=== PATIENT | female | born 1995 | race Caucasian/White ===

== ENCOUNTER 2021-11-15 20:03 | Emergency (ER) | payer OTHER, MEDICAID, SELFPAY ==
[2021-11-15] VITALS (34 sets, daily range): BP systolic 84–124; BP diastolic 49–64; PULSE 74–141; RESP 15–36; TEMP 37.2; O2SAT 90–97; BMI 34.9
[2021-11-15] MEDS: LORazepam 2 MG/ML INJ ×3 (20:11→21:25)
--- NOTE | 2021-11-15 20:23 | DI.CT.S_ITS ---
PROCEDURE: CT HEAD/BRAIN WO CON INDICATIONS: seizure TECHNIQUE: Noncontrast 4.5 mm thick angled axial sections acquired from the foramen magnum to the vertex, with coronal and sagittal reformats. For radiation dose reduction, the following was used: automated exposure control, adjustment of mA and/or kV according to patient size. COMPARISON: [facility], CT, CT HEAD WITHOUT CONTRAST, 10/27/2018, 19:33. FINDINGS: Image quality: Excellent. CSF spaces: Basal cisterns are patent. No extra-axial fluid collections. Ventricles are normal in size and shape. Brain: No midline shift. No intracranial masses or hemorrhage. Stuart-white matter interface is normal. Skull and face: Calvarium and visualized facial bones are intact, without suspicious lesions. Sinuses: Visualized sinuses and mastoids are clear. IMPRESSION: 1. No acute intracranial abnormalities. If clinically indicated, follow-up MRI may be helpful. Dictated by: Tahira Cruz M.D. on 11/15/2021 at 21:38 Approved by: Tahira Cruz M.D. on 11/15/2021 at 21:39
--- NOTE | 2021-11-15 20:25 | ED.SEIZURE ---
HPI - Seizure <Ella Rao DO - Last Filed: 11/16/21 23:24> General Chief Complaint: Seizure Stated Complaint: Siezure Time Seen by Provider: 11/15/21 20:22 Source: patient and EMS Mode of arrival: EMS Limitations: no limitations History of Present Illness HPI Narrative: Patient is a 26-year-old female with history of epilepsy taking Lamictal and Keppra presenting today with seizure. According to EMS she had been seizing for 30 minutes prior to their arrival. She immediately received 5 mg of Versed IM she continued to see his for approximately 20 minutes for them she got 3 mg of Versed IV once IV was established. She did not have a postictal per EMS. She upon arrival was awake alert oriented but immediately started seizing again a seizure lasting for approximately 5 minutes. She received 2 doses of IV Ativan and is now being loaded with Keppra 1g. She has not bitten her tongue no incontinence of urine. She did have rolling of the eyes in the back of the head. Her neurologist is Dr. Jacobs at [facility]. Patient's mother is at bedside she recently flew in because of her recent hospitalization at [facility]. Patient apparently has appointment with her primary neurologist in 2 days. Records from [facility] have been received and reviewed. EEG from November 06 to November 07 shows that there is 1 prolonged event lasting upwards of possibly 15 minutes described with varying degrees of a rhythmic jerking pelvic thrusting abdominal flexions epi and flowing its characteristics without clear-cut electro cerebral correlate. Given the clinical appearance of this particular event strong suspicion would be for this being a psychogenic nonepileptic seizure. Related Data Allergies Allergy/AdvReac Type Severity Reaction Status Date / Time INGREDIENT: NO KNOWN - NO Allergy Unknown Uncoded 01/06/18 13:09 KNOWN DRUG ALLERGY Review of Systems <Ella Rao DO - Last Filed: 11/16/21 23:24> Review of Systems Narrative: GENERAL: Denies chills, fatigue, malaise, fever, sweats, travel HEENT: Denies sinus pain, ear pain, sore throat, difficulty swallowing, neck pain RESPIRATORY: Denies dyspnea, cough, wheezing, hemoptysis, sputum. CARDIOVASCULAR: Denies chest pain, palpitations, orthopnea, edema GASTROINTESTINAL: Denies nausea, vomiting, abdominal pain, diarrhea, constipation, melena. : Denies dysuria, frequency, incontinence, hematuria, urinary retention, flank pain. MUSCULOSKELETAL: Denies weakness, joint pain, or bony pain SKIN: No rash, no erythema, no pruritus NEUROLOGIC: Denies weakness, dizziness, headache, numbness, change in speech, confusion PSYCHIATRIC: No concerning psychosocial issues. 12 point review of systems is negative except for those stated above and HPI Patient History <Ella Rao DO - Last Filed: 11/16/21 23:24> alcohol intake frequency: 0-2 drinks per day Exam <Ella Rao DO - Last Filed: 11/16/21 23:24> Initial Vital Signs Initial Vital Signs: Vital Signs Temperature 99.0 F 11/15/21 20:07 Pulse Rate 130 H 11/15/21 20:07 Respiratory Rate 23 11/15/21 20:07 Blood Pressure 103/58 L 11/15/21 20:07 Pulse Oximetry 93 11/15/21 20:07 GENERAL: Alert diaphoretic 26-year-old female HEENT: Head atraumatic,EOMI, pupils reactive, face symmetric, [moist] mucous membranes CARDIOVASCULAR: Tachycardic regular RESPIRATORY: Breath sounds equal bilaterally, no wheezes rales or rhonchi. ABDOMEN: Soft, nontender. Normoactive bowel sounds all 4 quadrants. No guarding or rebound. EXTREMITIES: Normal range of motion, no clubbing or edema. Neurovascularly intact NEUROLOGICAL: A&O x4 no cranial nerve deficits SKIN: Warm, dry, no laceration, no petechiae, no rashes or lesions. <Amanda Bartholomew, DO - Last Filed: 11/16/21 18:47> Initial Vital Signs Initial Vital Signs: Vital Signs Temperature 99.0 F 11/15/21 20:07 Pulse Rate 130 H 11/15/21 20:07 Respiratory Rate 23 11/15/21 20:07 Blood Pressure 103/58 L 11/15/21 20:07 Pulse Oximetry 93 11/15/21 20:07 Course <Ella Rao DO - Last Filed: 11/16/21 23:24> Orders Ordered: Discontinued Medications Diazepam (Diazepam 10 Mg/2 Ml Syringe) 5 mg IV NOW ONE Stop: 11/15/21 20:19 Last Admin: 11/15/21 23:40 Dose: Not Given Documented by: BENNETT Levetiracetam 1,000 mg/ Sodium (Chloride) 110 mls @ 440 mls/hr IV NOW ONE Stop: 11/15/21 20:13 Last Infusion: 11/15/21 20:45 Dose: 0 mls/hr Documented by: Admin: 11/15/21 20:26 Dose: 440 mls/hr Documented by: BENNETT Sodium Chloride (Normal Saline 0.9%) 1,000 mls @ 1,000 mls/hr IV BOLUS ONE Stop: 11/15/21 21:21 Last Infusion: 11/15/21 21:53 Dose: 0 mls/hr Documented by: Admin: 11/15/21 20:31 Dose: 1,000 mls/hr Documented by: BENNETT Sodium Chloride (Normal Saline 0.9%) 1,000 mls @ 1,000 mls/hr IV BOLUS ONE Stop: 11/15/21 22:42 Last Infusion: 11/15/21 23:29 Dose: 0 mls/hr Documented by: Admin: 11/15/21 21:55 Dose: 1,000 mls/hr Documented by: MANUEL Vital Signs Vital signs: Vital Signs - 8 hr 11/15/21 23:50 11/16/21 00:00 11/16/21 00:10 Pulse Rate 75 73 74 Respiratory Rate 24 23 17 Blood Pressure 107/61 Pulse Oximetry 96 94 11/16/21 00:15 11/16/21 00:20 11/16/21 00:30 Pulse Rate 73 77 78 Respiratory Rate 17 18 19 Blood Pressure 111/67 Pulse Oximetry 94 93 93 11/16/21 00:40 11/16/21 00:50 11/16/21 01:00 Pulse Rate 81 79 79 Respiratory Rate 18 19 18 Blood Pressure 104/62 Pulse Oximetry 93 93 93 11/16/21 01:10 11/16/21 01:20 11/16/21 01:30 Pulse Rate 81 81 77 Respiratory Rate 17 18 17 Blood Pressure Pulse Oximetry 93 93 94 11/16/21 01:40 11/16/21 01:50 11/16/21 02:00 Pulse Rate 77 76 71 Respiratory Rate 17 18 17 Blood Pressure 111/63 Pulse Oximetry 94 94 94 11/16/21 02:10 11/16/21 02:20 11/16/21 02:30 Pulse Rate 71 71 69 Respiratory Rate 16 17 17 Blood Pressure Pulse Oximetry 95 95 95 11/16/21 02:40 11/16/21 02:50 11/16/21 03:00 Pulse Rate 75 72 69 Respiratory Rate 16 15 0 L Blood Pressure 108/64 Pulse Oximetry 95 95 95 11/16/21 03:10 11/16/21 03:20 11/16/21 03:30 Pulse Rate 68 70 69 Respiratory Rate 17 16 16 Blood Pressure Pulse Oximetry 95 95 95 11/16/21 03:40 11/16/21 03:50 11/16/21 04:00 Pulse Rate 68 69 78 Respiratory Rate 17 16 32 H Blood Pressure 112/76 Pulse Oximetry 94 94 94 11/16/21 04:10 11/16/21 04:20 11/16/21 04:30 Pulse Rate 66 61 60 Respiratory Rate 16 16 17 Blood Pressure Pulse Oximetry 94 94 94 11/16/21 05:00 11/16/21 05:30 11/16/21 06:00 Pulse Rate 64 61 61 Respiratory Rate 16 15 16 Blood Pressure 104/61 100/57 L Pulse Oximetry 93 99 94 11/16/21 06:30 Pulse Rate 59 L Respiratory Rate 17 Blood Pressure Pulse Oximetry 96 <Amanda Bartholomew, - Last Filed: 11/16/21 18:47> Orders Ordered: Discontinued Medications Diazepam (Diazepam 10 Mg/2 Ml Syringe) 5 mg IV NOW ONE Stop: 11/15/21 20:19 Last Admin: 11/15/21 23:40 Dose: Not Given Documented by: BENNETT Levetiracetam 1,000 mg/ Sodium (Chloride) 110 mls @ 440 mls/hr IV NOW ONE Stop: 11/15/21 20:13 Last Infusion: 11/15/21 20:45 Dose: 0 mls/hr Documented by: Admin: 11/15/21 20:26 Dose: 440 mls/hr Documented by: BENNETT Sodium Chloride (Normal Saline 0.9%) 1,000 mls @ 1,000 mls/hr IV BOLUS ONE Stop: 11/15/21 21:21 Last Infusion: 11/15/21 21:53 Dose: 0 mls/hr Documented by: Admin: 11/15/21 20:31 Dose: 1,000 mls/hr Documented by: BENNETT Sodium Chloride (Normal Saline 0.9%) 1,000 mls @ 1,000 mls/hr IV BOLUS ONE Stop: 11/15/21 22:42 Last Infusion: 11/15/21 23:29 Dose: 0 mls/hr Documented by: Admin: 11/15/21 21:55 Dose: 1,000 mls/hr Documented by: MANUEL Reevaluation(s) Reevaluation #1: Patient signed out to myself. Seen and independently evaluated by myself. Patient is alert. Appropriate. We reviewed her findings from the end and recommendation from the neuro hospitalist there. Patient states she has been told she has focal seizures and sees Dr. Jacobs. Unclear if she had prior EEGs that showed this. At this time recommended to have continue her medications as prescribed. We will wait for her mother to come to pick her up continue to monitor she had quite a bit of benzos but is alert at this time and not particularly sleepy on my examination. Time: 07:47 Reevaluation #2: Patient seen just before discharge. Her mother is at bedside we reviewed findings overnight that her head CT was negative. She had reviewed with Dr. Rao the findings and recommendations from neuro hospitalist and that these are believed to be psychogenic nonepileptic seizures. They do have follow-up this coming Thursday with her regular neurologist Dr. Jacobs recommended to give these findings and her discharge paperwork to him for further evaluation as he has her past medical history available to him and we do not. Vital Signs Vital signs: Vital Signs - 8 hr 11/15/21 23:50 11/16/21 00:00 11/16/21 00:10 Pulse Rate 75 73 74 Respiratory Rate 24 23 17 Blood Pressure 107/61 Pulse Oximetry 96 94 11/16/21 00:15 11/16/21 00:20 11/16/21 00:30 Pulse Rate 73 77 78 Respiratory Rate 17 18 19 Blood Pressure 111/67 Pulse Oximetry 94 93 93 11/16/21 00:40 11/16/21 00:50 11/16/21 01:00 Pulse Rate 81 79 79 Respiratory Rate 18 19 18 Blood Pressure 104/62 Pulse Oximetry 93 93 93 11/16/21 01:10 11/16/21 01:20 11/16/21 01:30 Pulse Rate 81 81 77 Respiratory Rate 17 18 17 Blood Pressure Pulse Oximetry 93 93 94 11/16/21 01:40 11/16/21 01:50 11/16/21 02:00 Pulse Rate 77 76 71 Respiratory Rate 17 18 17 Blood Pressure 111/63 Pulse Oximetry 94 94 94 11/16/21 02:10 11/16/21 02:20 11/16/21 02:30 Pulse Rate 71 71 69 Respiratory Rate 16 17 17 Blood Pressure Pulse Oximetry 95 95 95 11/16/21 02:40 11/16/21 02:50 11/16/21 03:00 Pulse Rate 75 72 69 Respiratory Rate 16 15 0 L Blood Pressure 108/64 Pulse Oximetry 95 95 95 11/16/21 03:10 11/16/21 03:20 11/16/21 03:30 Pulse Rate 68 70 69 Respiratory Rate 17 16 16 Blood Pressure Pulse Oximetry 95 95 95 11/16/21 03:40 11/16/21 03:50 11/16/21 04:00 Pulse Rate 68 69 78 Respiratory Rate 17 16 32 H Blood Pressure 112/76 Pulse Oximetry 94 94 94 11/16/21 04:10 11/16/21 04:20 11/16/21 04:30 Pulse Rate 66 61 60 Respiratory Rate 16 16 17 Blood Pressure Pulse Oximetry 94 94 94 11/16/21 05:00 11/16/21 05:30 11/16/21 06:00 Pulse Rate 64 61 61 Respiratory Rate 16 15 16 Blood Pressure 104/61 100/57 L Pulse Oximetry 93 99 94 11/16/21 06:30 Pulse Rate 59 L Respiratory Rate 17 Blood Pressure Pulse Oximetry 96 MDM - Seizure <Ella Rao, DO - Last Filed: 11/16/21 23:24> Lab Data Result diagrams: 11/15/21 20:18 11/15/21 20:18 Labs: Lab Results 11/15/21 11/15/21 11/15/21 Range/Units 20:18 20:18 20:18 WBC (4.5-11.0) X10^3/uL RBC (4.0-5.2) X10^6/uL Hgb (12.0-16.0) g/dL Hct (36-46) % MCV (80-100) fL MCH (26-34) PG MCHC (30-36) % RDW (11.6-14.8) % Plt Count (150-400) X10^3/uL Neut % (Auto) (50-75) % Lymph % (Auto) (25-40) % [place] % (Auto) (3-14) % Eos % (Auto) (2-4) % Baso % (Auto) (0-2) % Neut # (Auto) (8218-7826) /uL Lymph # (Auto) (2284-0150) /uL [place] # (Auto) (0-900) /uL Eos # (Auto) (0-450) /uL Baso # (Auto) (0-100) /uL Sodium 140 (137-145) mmol/L Potassium 3.5 (3.4-5.1) mmol/L Chloride 106 (98-107) mmol/L Carbon Dioxide 21 L (22-32) mmol/L BUN 10 (7-17) mg/dL Creatinine 0.89 (0.52-1.04) mg/dL Estimated GFR > 60.0 (>60) mL/min BUN/Creatinine Ratio 11.2 (6-22) Glucose 118 H (70-100) mg/dL Lactate 5.4 H* (0.7-2.1) mmol/L Calcium 9.5 (8.4-10.2) mg/dL Magnesium (1.6-2.3) mg/dL Total Bilirubin 0.3 (0.2-1.3) mg/dL AST 31 (14-36) IU/L ALT 20 (<35) IU/L Alkaline Phosphatase 77 (38-126) U/L Total Protein 8.0 (6.3-8.2) g/dL Albumin 4.8 (3.5-5.0) g/dL Globulin 3.2 (1.7-4.1) g/dL Albumin/Globulin Ratio 1.5 (1.0-2.8) Prolactin (3.0-18.6) ng/mL Serum , Qual Negative (Negative) Urine Color Urine Appearance Urine pH (4.5-8.0) Ur Specific [place] (1.000-1.035) Urine Protein (Negative) Urine Glucose (UA) (Negative) g/dL Urine Ketones (NEGATIVE) Urine Occult Blood (Negative) Urine Nitrate (Negative) Urine Bilirubin (NEGATIVE) Urine Urobilinogen (0.2) E.U./dL Ur Leukocyte Esterase (NEGATIVE) U Opiates 300ng/mL cut (Negative) Ur Oxycodone Screen (Negative) Urine Methadone Screen (Negative) Ur Barbiturates Screen (Negative) U Tricyclic Antidepress (Negative) Ur Phencyclidine Scrn (Negative) Ur Amphetamines Screen (Negative) U Methamphetamines Scrn (Negative) Ur MDMA Scrn (Ecstasy) (Negative) U Benzodiazepines Scrn (Negative) Urine Cocaine Screen (Negative) U Marijuana (THC) Screen (Negative) SARS-CoV-2 (PCR) (Negative) 11/15/21 11/15/21 11/15/21 Range/Units 20:18 20:18 20:25 WBC 6.9 (4.5-11.0) X10^3/uL RBC 5.17 (4.0-5.2) X10^6/uL Hgb 14.2 (12.0-16.0) g/dL Hct 41.4 (36-46) % MCV 80.1 (80-100) fL MCH 27.4 (26-34) PG MCHC 34.2 (30-36) % RDW 14.1 (11.6-14.8) % Plt Count 345 (150-400) X10^3/uL Neut % (Auto) 63.1 (50-75) % Lymph % (Auto) 27.4 (25-40) % [place] % (Auto) 7.3 (3-14) % Eos % (Auto) 1.5 L (2-4) % Baso % (Auto) 0.7 (0-2) % Neut # (Auto) 4400 (7323-8855) /uL Lymph # (Auto) 1900 (0527-4664) /uL [place] # (Auto) 500 (0-900) /uL Eos # (Auto) 100 (0-450) /uL Baso # (Auto) 0 (0-100) /uL Sodium (137-145) mmol/L Potassium (3.4-5.1) mmol/L Chloride (98-107) mmol/L Carbon Dioxide (22-32) mmol/L BUN (7-17) mg/dL Creatinine (0.52-1.04) mg/dL Estimated GFR (>60) mL/min BUN/Creatinine Ratio (6-22) Glucose (70-100) mg/dL Lactate (0.7-2.1) mmol/L Calcium (8.4-10.2) mg/dL Magnesium 1.6 (1.6-2.3) mg/dL Total Bilirubin (0.2-1.3) mg/dL AST (14-36) IU/L ALT (<35) IU/L Alkaline Phosphatase (38-126) U/L Total Protein (6.3-8.2) g/dL Albumin (3.5-5.0) g/dL Globulin (1.7-4.1) g/dL Albumin/Globulin Ratio (1.0-2.8) Prolactin 36.8 H (3.0-18.6) ng/mL Serum , Qual (Negative) Urine Color Urine Appearance Urine pH (4.5-8.0) Ur Specific [place] (1.000-1.035) Urine Protein (Negative) Urine Glucose (UA) (Negative) g/dL Urine Ketones (NEGATIVE) Urine Occult Blood (Negative) Urine Nitrate (Negative) Urine Bilirubin (NEGATIVE) Urine Urobilinogen (0.2) E.U./dL Ur Leukocyte Esterase (NEGATIVE) U Opiates 300ng/mL cut (Negative) Ur Oxycodone Screen (Negative) Urine Methadone Screen (Negative) Ur Barbiturates Screen (Negative) U Tricyclic Antidepress (Negative) Ur Phencyclidine Scrn (Negative) Ur Amphetamines Screen (Negative) U Methamphetamines Scrn (Negative) Ur MDMA Scrn (Ecstasy) (Negative) U Benzodiazepines Scrn (Negative) Urine Cocaine Screen (Negative) U Marijuana (THC) Screen (Negative) SARS-CoV-2 (PCR) Negative (Negative) 11/15/21 11/15/21 11/15/21 Range/Units 20:53 20:53 22:37 WBC (4.5-11.0) X10^3/uL RBC (4.0-5.2) X10^6/uL Hgb (12.0-16.0) g/dL Hct (36-46) % MCV (80-100) fL MCH (26-34) PG MCHC (30-36) % RDW (11.6-14.8) % Plt Count (150-400) X10^3/uL Neut % (Auto) (50-75) % Lymph % (Auto) (25-40) % [place] % (Auto) (3-14) % Eos % (Auto) (2-4) % Baso % (Auto) (0-2) % Neut # (Auto) (8074-5269) /uL Lymph # (Auto) (5511-5344) /uL [place] # (Auto) (0-900) /uL Eos # (Auto) (0-450) /uL Baso # (Auto) (0-100) /uL Sodium (137-145) mmol/L Potassium (3.4-5.1) mmol/L Chloride (98-107) mmol/L Carbon Dioxide (22-32) mmol/L BUN (7-17) mg/dL Creatinine (0.52-1.04) mg/dL Estimated GFR (>60) mL/min BUN/Creatinine Ratio (6-22) Glucose (70-100) mg/dL Lactate 0.8 (0.7-2.1) mmol/L Calcium (8.4-10.2) mg/dL Magnesium (1.6-2.3) mg/dL Total Bilirubin (0.2-1.3) mg/dL AST (14-36) IU/L ALT (<35) IU/L Alkaline Phosphatase (38-126) U/L Total Protein (6.3-8.2) g/dL Albumin (3.5-5.0) g/dL Globulin (1.7-4.1) g/dL Albumin/Globulin Ratio (1.0-2.8) Prolactin (3.0-18.6) ng/mL Serum , Qual (Negative) Urine Color Yellow Urine Appearance Cloudy Urine pH 7.0 (4.5-8.0) Ur Specific [place] 1.020 (1.000-1.035) Urine Protein Trace H (Negative) Urine Glucose (UA) Negative (Negative) g/dL Urine Ketones Negative (NEGATIVE) Urine Occult Blood Negative (Negative) Urine Nitrate Negative (Negative) Urine Bilirubin Negative (NEGATIVE) Urine Urobilinogen 0.2 (0.2) E.U./dL Ur Leukocyte Esterase Negative (NEGATIVE) U Opiates 300ng/mL cut Negative (Negative) Ur Oxycodone Screen Negative (Negative) Urine Methadone Screen Negative (Negative) Ur Barbiturates Screen Negative (Negative) U Tricyclic Antidepress Negative (Negative) Ur Phencyclidine Scrn Negative (Negative) Ur Amphetamines Screen Negative (Negative) U Methamphetamines Scrn Negative (Negative) Ur MDMA Scrn (Ecstasy) Negative (Negative) U Benzodiazepines Scrn Negative (Negative) Urine Cocaine Screen Negative (Negative) U Marijuana (THC) Screen Positive H (Negative) SARS-CoV-2 (PCR) (Negative) Point of Care Testing Glucose POC [address] scan - head: Radiologist's Impression: PROCEDURE:? CT HEAD/BRAIN WO CON ? INDICATIONS:? seizure ? TECHNIQUE:? Noncontrast 4.5 mm thick angled axial sections acquired from the foramen magnum to the vertex, with coronal and sagittal reformats.? For radiation dose reduction, the following was used:? automated exposure control, adjustment of mA and/or kV according to patient size.? ? COMPARISON:? [facility], CT, CT HEAD WITHOUT CONTRAST, 10/27/2018, 19:33. ? FINDINGS:? Image quality:? Excellent.? ? CSF spaces:? Basal cisterns are patent.? No extra-axial fluid collections.? Ventricles are normal in size and shape.? ? Brain:? No midline shift.? No intracranial masses or hemorrhage.? [place]-white matter interface is normal.? ? Skull and face:? Calvarium and visualized facial bones are intact, without suspicious lesions.? ? Sinuses:? Visualized sinuses and mastoids are clear.? ? IMPRESSION:? ? 1. No acute intracranial abnormalities. If clinically indicated, follow-up MRI may be helpful.? ? Dictated by: Tahira Cruz M.D. on 11/15/2021 at 21:38 ? ? MDM Narrative Medical decision making narrative: The patient immediately had seizure upon arrival in the emergency department requiring a total 4 mg of Ativan. Seizure lasting anywhere from 5-10 minutes. She then came out of it without being postictal awake and alert requesting to see this CT images of her head once it is done. Once in the CT scanner she again had another seizure for which she was again given [address] 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 He states that there is no medication for this to stop. He agrees with the Ativan and Keppra however previously she received some any benzodiazepines that she remains sleeping for 16 hours, she was not intubated. At this time he states the patient does not need to be transferred and unlikely need any admission but does need follow-up with her own neurologist. Attempted to call is age the neurologist on-call for her his but the voicemail was full The patient was trying to record any but I did not give my permission for her to record then she wanted to leave. Mom states that she has had difficulty ambulating actually walk a walker since her discharge. Patient actually fell asleep. She is being monitored for all the benzodiazepines that she was given. Patient is signed out too Dr. Bartholomew <Amanda Bartholomew, DO - Last Filed: 11/16/21 18:47> Lab Data Labs: Lab Results 11/15/21 11/15/21 11/15/21 Range/Units 20:18 20:18 20:18 WBC (4.5-11.0) X10^3/uL RBC (4.0-5.2) X10^6/uL Hgb (12.0-16.0) g/dL Hct (36-46) % MCV (80-100) fL MCH (26-34) PG MCHC (30-36) % RDW (11.6-14.8) % Plt Count (150-400) X10^3/uL Neut % (Auto) (50-75) % Lymph % (Auto) (25-40) % [place] % (Auto) (3-14) % Eos % (Auto) (2-4) % Baso % (Auto) (0-2) % Neut # (Auto) (7258-9671) /uL Lymph # (Auto) (1199-8379) /uL [place] # (Auto) (0-900) /uL Eos # (Auto) (0-450) /uL Baso # (Auto) (0-100) /uL Sodium 140 (137-145) mmol/L Potassium 3.5 (3.4-5.1) mmol/L Chloride 106 (98-107) mmol/L Carbon Dioxide 21 L (22-32) mmol/L BUN 10 (7-17) mg/dL Creatinine 0.89 (0.52-1.04) mg/dL Estimated GFR > 60.0 (>60) mL/min BUN/Creatinine Ratio 11.2 (6-22) Glucose 118 H (70-100) mg/dL Lactate 5.4 H* (0.7-2.1) mmol/L Calcium 9.5 (8.4-10.2) mg/dL Magnesium (1.6-2.3) mg/dL Total Bilirubin 0.3 (0.2-1.3) mg/dL AST 31 (14-36) IU/L ALT 20 (<35) IU/L Alkaline Phosphatase 77 (38-126) U/L Total Protein 8.0 (6.3-8.2) g/dL Albumin 4.8 (3.5-5.0) g/dL Globulin 3.2 (1.7-4.1) g/dL Albumin/Globulin Ratio 1.5 (1.0-2.8) Prolactin (3.0-18.6) ng/mL Serum , Qual Negative (Negative) Urine Color Urine Appearance Urine pH (4.5-8.0) Ur Specific [place] (1.000-1.035) Urine Protein (Negative) Urine Glucose (UA) (Negative) g/dL Urine Ketones (NEGATIVE) Urine Occult Blood (Negative) Urine Nitrate (Negative) Urine Bilirubin (NEGATIVE) Urine Urobilinogen (0.2) E.U./dL Ur Leukocyte Esterase (NEGATIVE) U Opiates 300ng/mL cut (Negative) Ur Oxycodone Screen (Negative) Urine Methadone Screen (Negative) Ur Barbiturates Screen (Negative) U Tricyclic Antidepress (Negative) Ur Phencyclidine Scrn (Negative) Ur Amphetamines Screen (Negative) U Methamphetamines Scrn (Negative) Ur MDMA Scrn (Ecstasy) (Negative) U Benzodiazepines Scrn (Negative) Urine Cocaine Screen (Negative) U Marijuana (THC) Screen (Negative) SARS-CoV-2 (PCR) (Negative) 11/15/21 11/15/21 11/15/21 Range/Units 20:18 20:18 20:25 WBC 6.9 (4.5-11.0) X10^3/uL RBC 5.17 (4.0-5.2) X10^6/uL Hgb 14.2 (12.0-16.0) g/dL Hct 41.4 (36-46) % MCV 80.1 (80-100) fL MCH 27.4 (26-34) PG MCHC 34.2 (30-36) % RDW 14.1 (11.6-14.8) % Plt Count 345 (150-400) X10^3/uL Neut % (Auto) 63.1 (50-75) % Lymph % (Auto) 27.4 (25-40) % [place] % (Auto) 7.3 (3-14) % Eos % (Auto) 1.5 L (2-4) % Baso % (Auto) 0.7 (0-2) % Neut # (Auto) 4400 (4041-4176) /uL Lymph # (Auto) 1900 (9586-4782) /uL [place] # (Auto) 500 (0-900) /uL Eos # (Auto) 100 (0-450) /uL Baso # (Auto) 0 (0-100) /uL Sodium (137-145) mmol/L Potassium (3.4-5.1) mmol/L Chloride (98-107) mmol/L Carbon Dioxide (22-32) mmol/L BUN (7-17) mg/dL Creatinine (0.52-1.04) mg/dL Estimated GFR (>60) mL/min BUN/Creatinine Ratio (6-22) Glucose (70-100) mg/dL Lactate (0.7-2.1) mmol/L Calcium (8.4-10.2) mg/dL Magnesium 1.6 (1.6-2.3) mg/dL Total Bilirubin (0.2-1.3) mg/dL AST (14-36) IU/L ALT (<35) IU/L Alkaline Phosphatase (38-126) U/L Total Protein (6.3-8.2) g/dL Albumin (3.5-5.0) g/dL Globulin (1.7-4.1) g/dL Albumin/Globulin Ratio (1.0-2.8) Prolactin 36.8 H (3.0-18.6) ng/mL Serum , Qual (Negative) Urine Color Urine Appearance Urine pH (4.5-8.0) Ur Specific [place] (1.000-1.035) Urine Protein (Negative) Urine Glucose (UA) (Negative) g/dL Urine Ketones (NEGATIVE) Urine Occult Blood (Negative) Urine Nitrate (Negative) Urine Bilirubin (NEGATIVE) Urine Urobilinogen (0.2) E.U./dL Ur Leukocyte Esterase (NEGATIVE) U Opiates 300ng/mL cut (Negative) Ur Oxycodone Screen (Negative) Urine Methadone Screen (Negative) Ur Barbiturates Screen (Negative) U Tricyclic Antidepress (Negative) Ur Phencyclidine Scrn (Negative) Ur Amphetamines Screen (Negative) U Methamphetamines Scrn (Negative) Ur MDMA Scrn (Ecstasy) (Negative) U Benzodiazepines Scrn (Negative) Urine Cocaine Screen (Negative) U Marijuana (THC) Screen (Negative) SARS-CoV-2 (PCR) Negative (Negative) 11/15/21 11/15/21 11/15/21 Range/Units 20:53 20:53 22:37 WBC (4.5-11.0) X10^3/uL RBC (4.0-5.2) X10^6/uL Hgb (12.0-16.0) g/dL Hct (36-46) % MCV (80-100) fL MCH (26-34) PG MCHC (30-36) % RDW (11.6-14.8) % Plt Count (150-400) X10^3/uL Neut % (Auto) (50-75) % Lymph % (Auto) (25-40) % [place] % (Auto) (3-14) % Eos % (Auto) (2-4) % Baso % (Auto) (0-2) % Neut # (Auto) (0826-4419) /uL Lymph # (Auto) (8700-9232) /uL [place] # (Auto) (0-900) /uL Eos # (Auto) (0-450) /uL Baso # (Auto) (0-100) /uL Sodium (137-145) mmol/L Potassium (3.4-5.1) mmol/L Chloride (98-107) mmol/L Carbon Dioxide (22-32) mmol/L BUN (7-17) mg/dL Creatinine (0.52-1.04) mg/dL Estimated GFR (>60) mL/min BUN/Creatinine Ratio (6-22) Glucose (70-100) mg/dL Lactate 0.8 (0.7-2.1) mmol/L Calcium (8.4-10.2) mg/dL Magnesium (1.6-2.3) mg/dL Total Bilirubin (0.2-1.3) mg/dL AST (14-36) IU/L ALT (<35) IU/L Alkaline Phosphatase (38-126) U/L Total Protein (6.3-8.2) g/dL Albumin (3.5-5.0) g/dL Globulin (1.7-4.1) g/dL Albumin/Globulin Ratio (1.0-2.8) Prolactin (3.0-18.6) ng/mL Serum , Qual (Negative) Urine Color Yellow Urine Appearance Cloudy Urine pH 7.0 (4.5-8.0) Ur Specific [place] 1.020 (1.000-1.035) Urine Protein Trace H (Negative) Urine Glucose (UA) Negative (Negative) g/dL Urine Ketones Negative (NEGATIVE) Urine Occult Blood Negative (Negative) Urine Nitrate Negative (Negative) Urine Bilirubin Negative (NEGATIVE) Urine Urobilinogen 0.2 (0.2) E.U./dL Ur Leukocyte Esterase Negative (NEGATIVE) U Opiates 300ng/mL cut Negative (Negative) Ur Oxycodone Screen Negative (Negative) Urine Methadone Screen Negative (Negative) Ur Barbiturates Screen Negative (Negative) U Tricyclic Antidepress Negative (Negative) Ur Phencyclidine Scrn Negative (Negative) Ur Amphetamines Screen Negative (Negative) U Methamphetamines Scrn Negative (Negative) Ur MDMA Scrn (Ecstasy) Negative (Negative) U Benzodiazepines Scrn Negative (Negative) Urine Cocaine Screen Negative (Negative) U Marijuana (THC) Screen Positive H (Negative) SARS-CoV-2 (PCR) (Negative) Point of Care Testing Glucose POC 101 MDM Narrative Medical decision making narrative: The patient immediately had seizure upon arrival in the emergency department requiring a total 4 mg of Ativan. Seizure lasting anywhere from 5-10 minutes. She then came out of it without being postictal awake and alert requesting to see this CT images of her head once it is done. Once in the CT scanner she again had another seizure for which she was again given [address] 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 He states that there is no medication for this to stop. He agrees with the Ativan and Keppra however previously she received some any benzodiazepines that she remains sleeping for 16 hours, she was not intubated. At this time he states the patient does not need to be transferred and unlikely need any admission but does need follow-up with her own neurologist. Attempted to call is age the neurologist on-call for her his but the voicemail was full The patient was trying to record any but I did not give my permission for her to record then she wanted to leave. Mom states that she has had difficulty ambulating actually walk a walker since her discharge. Patient actually fell asleep. She is being monitored for all the benzodiazepines that she was given. Patient is signed out too Dr. Bartholomew. Patient signed out to myself by Dr. Rao. Patient seen independently evaluated by myself patient has of history of psychogenic seizures and was seen at [facility] November 06, had an EEG which did not show seizure activity and Dr. Rao spoke with her hospitalist who states patient does have pseudoseizures or nonepileptic seizures. They reviewed that there is no medications for this to stop. Patient did have an elevated lactate which is improved here in the department with otherwise reassuring labs, negative head CT and had improvement but has been sleeping for quite signed time likely to the multiple doses of benzodiazepines that she received. Patient is alert on examination and about 8:00 a.m. this morning. Waited for her ride to arrive which was several hours later reviewed recommendations and findings with her and her mother. All questions answered. Discharge Plan Departure Patient Disposition: Home Clinical Impression: Psychogenic nonepileptic seizure Activity Restrictions/Additional Instructions: Please continue your home medications. Your case was discussed with neurology at [facility] where you were recently admitted and it is recommended that you follow up with Dr. Jacobs at your appointment on Thursday. 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 Please return for fevers, new changes, persistent symptoms, vomiting, severe headaches, or other new or concerning changes.
[2021-11-15] MEDS: levETIRAcetam 1,000 MG in SODIUM CHLORIDE 0.9% 100 ML 440 ML IV (20:26)
[2021-11-15] MEDS: SODIUM CHLORIDE 0.9% 1,000 ML 1000 ML IV ×2 (20:31→21:55)
[2021-11-15 20:32] LABS: Add Manual Diff / Slide Review NO; Basophils Absolute Auto 0 /uL (0-100); Basophils Percent Auto 0.7 % (0-2); Eosinophils Absolute Auto 100 /uL (0-450); Eosinophils Percent Auto 1.5 % (2-4); Hematocrit 41.4 % (36-46); Hemoglobin 14.2 g/dL (12.0-16.0); Lymphocytes Absolute Auto 1900 /uL (1100-4500); Lymphocytes Percent Auto 27.4 % (25-40); Mean Corpuscular HGB Conc 34.2 % (30-36); Mean Corpuscular Hemoglobin 27.4 PG (26-34); Mean Corpuscular Volume 80.1 fL (80-100); Monocytes Absolute Auto 500 /uL (0-900); Monocytes Percent Auto 7.3 % (3-14); Neutrophils Absolute Auto 4400 /uL (1500-7000); Neutrophils Percent Auto 63.1 % (50-75); Platelet Count 345 X10^3/uL (150-400); Red Blood Cell Count 5.17 X10^6/uL (4.0-5.2); Red Cell Distribution Width 14.1 % (11.6-14.8); White Blood Cell Count 6.9 X10^3/uL (4.5-11.0)
--- NOTE | 2021-11-15 20:36 | PC.NURSE ---
Around 2011, while Dr Rao was at bedside for eval, pt became unresponsive with jerking movements of entire body. 2mg Ativan given IV per verbal order from Dr Rao at 2011 without effect. Dose repeated at 2014. Verbal order received from Dr Rao for 1 gm Keppra IV. Blood glucose checked at 2015 = 101. Pt was still seizing; verbal order received for 5mg diazepam; seizing stopped before administration of diazepam and was alert and conversant.
[2021-11-15 20:47] LABS: Alanine Aminotransferase 20 IU/L (<35); Albumin 4.8 g/dL (3.5-5.0); Albumin Globulin Ratio 1.5 (1.0-2.8); Alkaline Phosphatase 77 U/L (38-126); Aspartate Aminotransferase 31 IU/L (14-36); BUN Creatinine Ratio 11.2 (6-22); Bilirubin Total 0.3 mg/dL (0.2-1.3); Blood Urea Nitrogen 10 mg/dL (7-17); Calcium 9.5 mg/dL (8.4-10.2); Carbon Dioxide 21 mmol/L (22-32); Chloride 106 mmol/L (98-107); Estimated Glomerular Filt Rate > 60.0 mL/min (>60); Globulin 3.2 g/dL (1.7-4.1); Glucose 118 mg/dL (70-100); HEMOLYSIS < 15 (0-50); Potassium 3.5 mmol/L (3.4-5.1); Sodium 140 mmol/L (137-145)
[2021-11-15 20:48] LABS: Magnesium 1.6 mg/dL (1.6-2.3)
[2021-11-15 21:02] LABS: Lactate (Lactic Acid) 5.4 mmol/L (0.7-2.1)
[2021-11-15 21:03] LABS: Appearance Urine UA CLOUDY; Bilirubin Urine UA NEGATIVE (NEGATIVE); Color Urine UA YELLOW; Glucose Urine UA NEGATIVE (Negative); Ketones Urine UA NEGATIVE (NEGATIVE); Leukocyte Esterase Urine UA NEGATIVE (NEGATIVE); Nitrite Urine UA NEGATIVE (Negative); Occult Blood Urine UA NEGATIVE (Negative); Protein Urine UA TRACE (Negative); Urobilinogen Urine UA 0.2 E.U./dL (0.2)
[2021-11-15 21:04] LABS: Prolactin 36.8 ng/mL (3.0-18.6)
[2021-11-15 21:05] LABS: Pregnancy Test Serum,Qual Negative (Negative)
[2021-11-15 21:07] LABS: Ur Creatinine 20 (Normal); Urine Cocaine Negative (Negative); Urine Tetrahydrocannabinol Positive (Negative); Urine pH 7 (Normal)
[2021-11-15 21:08] LABS: UR Morphine/Opiate cutoff 300 Negative (Negative); Urine Amphetamines Negative (Negative); Urine Barbiturates Negative (Negative); Urine Benzodiazepines Negative (Negative); Urine MDMA Negative (Negative); Urine Methadone Negative (Negative); Urine Methamphetamines Negative (Negative); Urine Oxycodone Negative (Negative); Urine Phencyclidine Negative (Negative); Urine Tricyclic Antidepressant Negative (Negative)
[2021-11-15 21:08] LABS: COVID19 -Nasal RAPID Negative (Negative)
--- NOTE | 2021-11-15 21:47 | PC.NURSE ---
While at CT, pt strapped to table then started jerking movement and unresponsive. Dr Rao called in, 2mg Ativan given IV per verbal order, and pt became responsive during administration. Pt was then able to complete procedure.
[2021-11-15 22:28] LABS: Reflexed Lactate in 2 Hours Y
[2021-11-15 22:58] LABS: Lactate 2HR (Lactic Acid Rflx) 0.8 mmol/L (0.7-2.1)
--- NOTE | 2021-11-15 23:15 | PC.NURSE ---
Rounded on pt to find pt standing at bedside with assistance by mom. Assisted pt to bed and educated family member and pt about staying in stretcher and alerting staff if pt is to get up r/t prior episodes, also r/t monitor wires attached. Both family member and pt verbalize understanding. Pt picks at IV, instsructed not to pick at it, pt noted to continue to pull at things, interacts appropriately. Left room and a few minutes later responded to pt call light to find pt pulling off wires and stating she wanted to leave because she didn't want to stay. Reiterated education to pt on plan of care and ideal plan to transfer, pt verbalize understanding, allowed staff to reapply monitors.
[2021-11-16] VITALS (56 sets, daily range): BP systolic 92–119; BP diastolic 50–76; PULSE 52–101; RESP 0–23; O2SAT 93–99
--- NOTE | 2021-11-16 04:34 | PC.NURSE ---
pt resting quietly on stretcher with eyes closed resp even and unlabored
--- NOTE | 2021-11-16 07:01 | PC.NURSE ---
pt continues resting
--- NOTE | 2021-11-16 08:04 | PC.NURSE ---
pt resting in bed eyes closed, nad. on monitor for ecg, bp, pulse ox.
--- NOTE | 2021-11-16 09:16 | PC.NURSE ---
called and left message with mom Adwoa [phone], that pt spent evening in er with us and ready now for dc and requesting if she could come pick pt up. pt unsure of other options for ride home, no other details left in message to mom.
== END 2021-11-16 10:30 | disposition home or self-care (01) ==
PROVIDERS: Emergency Medicine; Emergency Provider Emergency Medicine
DX: R56.9 Unspecified convulsions (principal); Z20.822 Contact with and (suspected) exposure to COVID-19; R00.0 Tachycardia, unspecified
CPT/HCPCS: 36415; 70450; 80053; 80305; 81003; 82962; 83605; 83735; 84146; 84703; 85025; 87635; 93005; 93010; 96361; 96365; 99284; C9803; J1953; J2060